=== PATIENT | female | born 1995 | race Caucasian/White ===

== ENCOUNTER 2018-06-28 19:37 | Outpatient (REF) | payer BC, SELFPAY ==
--- NOTE | 2018-06-28 10:30 | PAPFT_PTH ---
PATIENT: Lita Alexander LOC: [facility] U#:[id number] AGE/SX: 23/F ROOM: RE06/28/[address]: Chito Christy : 1995 BED: DIS: 06/28/2018 SPEC #: [id number] RECD: 06/29/18 12:45 STATUS: ANKUSH REQ #: [id number] HANS: 06/28/18 10:[address]: Chito Christy DEPT: [facility] Cytology RECD BY: Amy Palmer Tissues: 1 - CX/ENDOCX FOR PAP SMEARS Procedures: PAP THIN PREP/UVM Screening Comments: [id number]
[2018-06-30 14:42] LABS: Chlamydia Result Negative; GC Result Negative; Specimen Description CERVIX
== END 2018-06-28 19:57 ==
LOC: NCHCN 19:37
PROVIDERS: PCP Nurse Practitioner Family; Visit Provider Nurse Practitioner Family
DX: N89.8 Other specified noninflammatory disorders of vagina (principal); Z11.3 Encounter for screening for infections with a predominantly sexual mode of transmission; Z12.4 Encounter for screening for malignant neoplasm of cervix; Z00.00 Encounter for general adult medical examination without abnormal findings
CPT/HCPCS: 87491; 87591; 88142; 87480; 87510; 87660

== ENCOUNTER 2018-11-03 15:00 | Outpatient (REF) | payer BC, SELFPAY | END 2018-11-03 15:20 | LOC: NCHCN 15:00 | PROVIDERS: PCP Nurse Practitioner Family; Visit Provider Family Medicine | DX: L02.32 Furuncle of buttock (principal) | CPT/HCPCS: 87077; 87070; 87186; 87205 ==

== ENCOUNTER 2019-07-03 15:31 | Outpatient (REF) | payer OTHER, SELFPAY ==
[2019-07-04 13:32] LABS: COVID-19 RT-PCR UVMMC Result Negative (Negative)
== END 2019-07-03 15:51 ==
LOC: NCHCN 15:31
PROVIDERS: PCP Nurse Practitioner Family; Visit Provider Nurse Practitioner Family
DX: Z11.59 Encounter for screening for other viral diseases (principal)
CPT/HCPCS: U0003

== ENCOUNTER 2019-11-23 15:11 | Outpatient (REF) | payer OTHER, SELFPAY ==
[2019-11-27 01:10] LABS: Patient Race White; SARS-CoV-2 RNA Undetected (Undetected); SARS-CoV-2 Specimen Source Nasal
== END 2019-11-23 15:31 ==
LOC: NCHCN 15:11
PROVIDERS: PCP Nurse Practitioner Family; Visit Provider Nurse Practitioner Family
DX: J02.9 Acute pharyngitis, unspecified (principal)
CPT/HCPCS: U0003

== ENCOUNTER 2020-01-14 14:24 | Emergency (ER) | payer BC, SELFPAY ==
[2020-01-14 14:40] VITALS: BP 113/67; PULSE 85; RESP 16; TEMP 36.7; O2SAT 97
--- NOTE | 2020-01-14 15:34 | W.ED.GENAD ---
Discharge Plan Disposition Patient Disposition: HOME Condition: Stable Discharge Details Clinical Impression: Back pain Primary Care Provider: Chito Christy ED Provider: Andres Maurice Home Meds and New Rx's Prescriptions: New naproxen [Naprosyn] 500 mg tablet 500 mg PO BID PRNQty: 20 RF: 0 Continued albuterol sulfate [ProAir HFA] 8.5 GM HFA aerosol inhaler 2 puff Inhalation Q6H PRN RF: 0 sertraline [Zoloft] 50 MG tablet 50 mg PO DAILY RF: 0 Flovent HFA 12 GM HFA aerosol inhaler 110 mcg Inhalation BID RF: 0 cetirizine 10 MG tablet,chewable 10 mg PO HS RF: 0 SPACER RF: 0 trazodone 50 mg tablet 100 mg PO HS Qty: 60 RF: 0 lamotrigine 100 mg Tablet 100 mg PO BID RF: 0 Discharge Instructions Instructions: Back Pain (ED) Additional Instructions: Naprosyn as directed. Gentle stretching as tolerated. Warm and/or cool compresses every 2 hours for 20 minutes. Please watch for new or worsening symptoms and return to the ER for any concerns. Please reach out to your primary care provider later today or tomorrow for prompt outpatient reevaluation and to discuss physical therapy if you are not feeling better with more conservative therapy. Stand Alone Forms: Work Release Discharge Data Discharge Date/Time-TO BE ENTERED AT DEPARTURE: 01/14/20 15:55 Medical Decision Making 24-year-old female presents having slept awkwardly now complaining of right upper back and neck pain worse with movement. She took [id number] medication with some pain relief. Denies numbness, tingling, weakness although the pain does occasionally shoot down the right arm. She appears well, nontoxic. Denies fever, midline neck discomfort, chest pain, shortness of breath, chest pain. Clinically this certainly does appear to be musculoskeletal. Given there is no obvious trauma, no bony point tenderness, I see no clear indication for emergent x-ray imaging. Will treat with Naprosyn, gentle stretching, cool and/or warm compresses, and provide a light duty work note for the next 4 days. We discussed the importance of following up with with her primary care provider and potentially outpatient physical therapy symptoms persist. Return precautions given. Patient has no additional questions or concerns upon discharge Medical Records Medical records reviewed: Yes I reviewed the patient's medical records. HPI General Mode of arrival: ambulatory. Date/Time Provider Initiated Documentation: 01/14/20 14:48. Limitations to Documentation: no limitations. Information obtained by: patient. HPI Narrative: This is a 24-year-old female who reports past medical history including asthma. Patient states that she woke up yesterday with a stiff neck and right upper back pain. She states that the pain does radiate down her right arm. She is right-hand dominant. She denies any obvious injury or trauma but does do repetitive motion at work. Her primary concern today is a work note for the next 4 days that will allow her to perform only light duty. She denies headache, posterior neck pain, visual changes, chest pain, shortness of breath, cough, fever, numbness, tingling, weakness, abdominal pain, nausea, vomiting. Patient states that she did take [id number] medications with some relief. She states that she had a similar episode after a work injury a year or so ago, this was on the left side, and she subsequently needed physical therapy before it resolved completely. She states that the pain is mild at rest but more moderate with movement of her right shoulder above 90 degrees or with rotation of her neck. Related Data Home Medications Medication Instructions Recorded Confirmed Flovent HFA 110 mcg INHALATION BID inhaler 11/13/13 01/14/20 Spacer 11/13/13 09/03/14 albuterol sulfate [ProAir HFA] 2 puff INHALATION Q6H PRN inhaler 11/13/13 01/14/20 cetirizine 10 mg PO HS tab-cap 11/13/13 01/14/20 sertraline [Zoloft] 50 mg PO DAILY tab-cap 11/13/13 01/14/20 trazodone 50 mg tablet 100 mg PO HS #60 tab-cap 04/21/19 01/14/20 lamotrigine 100 mg PO BID 01/14/20 01/14/20 naproxen [Naprosyn] 500 mg PO BID PRN #20 tab 01/14/20 Previous Rx's Medication Instructions Recorded trazodone 50 mg tablet 100 mg PO HS #60 tab-cap 04/21/19 naproxen [Naprosyn] 500 mg PO BID PRN #20 tab 01/14/20 Allergies Allergy/AdvReac Type Severity Reaction Status Date / Time DOGS,CATS, ENVIROMENTAL Allergy Unknown Uncoded 01/14/20 14:46 General Stated Complaint: Nk/Back Pain LUIZA: 4 Review of Systems Constitutional Constitutional: Denies fever(s) and Denies weakness ENT Ears, Nose, Mouth, and Throat: Reports neck pain Cardiovascular Cardiovascular: Denies chest pain and Denies dyspnea Respiratory Respiratory: Denies dyspnea Gastrointestinal Gastrointestinal: Denies abdominal pain, Denies nausea and Denies vomiting Musculoskeletal Musculoskeletal: Reports back pain, Denies arthralgias, Denies muscle weakness, Reports neck pain, Denies numbness, Reports stiffness and Denies tingling Integumentary/Breasts Skin/Breast: Denies rash Neurologic Neurologic: Denies numbness, Denies tingling and Denies weakness [facility] Medical History Contraceptive management Implanon removed after 2yrs. Pt will use condoms. Hx of chlamydia infection Rx 06/2014 Surgical History Open Carpal Tunnel release 07/03/14 [facility]. Social History Smoking/Tobacco Use Status: Current every day Smoking risk assessment performed?: Yes Alcohol Intake: current Alcohol Intake frequency: holidays/special occasions only Drug use: Occasionally Substance use type: marijuana Do you feel safe at home: Yes Do you feel safe in your relationship?: Yes Exam Const General: cooperative, healthy appearing, comfortable and no acute distress Orientation: alert and awake [facility] Head: normal to inspection, normocephalic and atraumatic Eyes General: appearance normal, both eyes and all related structures Conjunctivae: conjunctivae normal Sclera: sclerae normal Neck Neck: normal visual inspection, full ROM (Increased pain with movement to the ipsilateral side), no lymphadenopathy, no meningeal signs, trachea midline, supple and tender (Right paravertebral and trapezius tenderness) Resp Effort & Inspection: normal respiratory effort and able to speak in complete sentences Auscultation: clear to auscultation bilaterally Cardio Rate: regular rate Rhythm: regular rhythm Back/Spine/Pelvis Back: no CVA tenderness and back tenderness (Diffuse mild thoracic paravertebral,extends toward the rhomboid. No spasm) Cervical Spine: normal cervical lordosis and cervical ROM normal Thoracic/Lumbar Spine: thoracic and lumbar spine normal to inspection and thoraco-lumbar ROM normal Skin General skin exam: no rashes or lesions noted Neuro General: patient alert, patient awake, moves all extremities and no focal motor deficits Gait: normal gait Motor: muscle tone normal throughout Sensory Exam: no sensory deficits noted Extrem General: normal to inspection, full ROM, no pedal edema and no calf tenderness Right upper extremity: normal to inspection and shoulder/upper arm Details: normal to inspection, axillary nerve sensory function normal and normal ROM; no tenderness and no swelling Other: Pain increases with movement of her right shoulder above the 90 degrees or any movement of her neck to the ipsilateral side. Psych Appearance: grossly normal Mental Status: mental status grossly normal Course Vital Signs Vital signs: Vital Signs Temperature 36.7 C 01/14/20 14:40 Pulse 85 01/14/20 14:40 Respiratory Rate 16 01/14/20 14:40 Blood Pressure 113/67 01/14/20 14:40 Pulse Oximetry 97 01/14/20 14:40 Temperature 36.7 C 01/14/20 14:40 Temperature Source Skin 01/14/20 14:40 Pulse 85 01/14/20 14:40 Respiratory Rate 16 01/14/20 14:40 Respiratory Effort 01/14/20 14:44 Blood Pressure 113/67 01/14/20 14:40 Blood Pressure Position Sitting 01/14/20 14:40 Pulse Oximetry 97 01/14/20 14:40 Oxygen Delivery Method Room Air 01/14/20 14:40 Oxygen Flow Rate 0 01/14/20 14:40 Pain Level 7 01/14/20 14:51
== END 2020-01-14 15:55 | disposition home or self-care (01) ==
PROVIDERS: Emergency Provider Physician Assistant; PCP Nurse Practitioner Family
DX: M54.6 Pain in thoracic spine (principal); M54.2 Cervicalgia; X50.9XXA Other and unspecified overexertion or strenuous movements or postures, initial encounter
CPT/HCPCS: 99282; 99283

== ENCOUNTER 2021-10-06 13:08 | Outpatient (REF) | payer MEDICAID, SELFPAY ==
[2021-10-08 11:37] LABS: COVID-19 RT-PCR UVMMC Result Negative (Negative)
== END 2021-10-06 13:09 | disposition home or self-care (01) ==
LOC: LBN 13:08
PROVIDERS: PCP Nurse Practitioner Family; Visit Provider Nurse Practitioner Family
DX: Z20.822 Contact with and (suspected) exposure to COVID-19 (principal)
CPT/HCPCS: U0003

== ENCOUNTER 2023-02-23 14:11 | Outpatient (REF) | payer MEDICAID, SELFPAY ==
--- NOTE | 2023-02-23 12:00 | PAPFT_PTH ---
PATIENT: Lita Alexander LOC: [facility] U#:[id number] AGE/SX: 27/F ROOM: RE02/23/[address]: MILAGROS CASTELLANOS : 1995 BED: DIS: 02/23/2023 SPEC #: [id number] RECD: 02/24/23 12:58 STATUS: ANKUSH REQ #: [id number] HANS: 02/23/23 12:[address]: Milagros Castellanos DEPT: [facility] Cytology RECD BY: Amy Palmer ENTERED: 02/24/23 12:58 SP TYPE: PAPFT OT DR: Unknown,Unknown Tissues: 1 - CX/ENDOCX FOR PAP SMEARS Procedures: PAP THIN PREP/UVM Screening HPV DNA PROBE Comments: [id number]
== END 2023-02-23 14:12 | disposition home or self-care (01) ==
LOC: NCHCN 14:11
PROVIDERS: Visit Provider Nurse Practitioner Family
DX: Z00.00 Encounter for general adult medical examination without abnormal findings (principal); Z12.4 Encounter for screening for malignant neoplasm of cervix; Z11.51 Encounter for screening for human papillomavirus (HPV)
CPT/HCPCS: 88142; 87624

== ENCOUNTER 2024-07-04 12:32 | Outpatient (REF) | payer BC, SELFPAY ==
[2024-07-04 21:18] LABS: TSH (W/Ref FT4) 6.24 uIU/mL (0.36-3.74)
[2024-07-04 21:35] LABS: FREE T4 0.85 ng/dL (0.76-1.46)
[2024-07-06 09:47] LABS: HIV-1/2 Ag & Ab Screen Negative (Negative)
[2024-07-06 10:19] LABS: Hepatitis C Ab w Rflx HCV PCR Negative (Negative)
== END 2024-07-04 12:33 | disposition home or self-care (01) ==
LOC: NCHCN 12:32
PROVIDERS: Visit Provider Family Medicine
DX: R63.5 Abnormal weight gain (principal); Z11.4 Encounter for screening for human immunodeficiency virus [HIV]
CPT/HCPCS: 86803; 87389; 84439; 84443

== ENCOUNTER 2024-12-03 11:42 | Outpatient (REF) | payer SELFPAY ==
[2024-12-03 15:41] LABS: HCT 41.5 % (36.0-46.0); HGB 13.8 g/dL (11.2-15.7); MCH 32.2 pg (27.0-33.0); MCHC 33.3 % (32.0-36.0); MCV 97 fL (80-95); MPV 8.8 fL (8.0-11.0); Platelet Count 409 10^3/uL (130-400); RBC 4.29 10^6/uL (3.93-5.22); RDW 12.5 % (11.7-14.6); RDW-SD 44.3 fL; WBC 7.04 10^3/uL (4.4-10.8)
[2024-12-03 16:06] LABS: ALT 25 U/L (14-59); AST 17 U/L (15-37); Albumin 4.2 g/dL (3.4-5.0); Alkaline Phosphatase 104 U/L (46-116); Anion Gap 10.7 mmol/L (3-11); BUN 7 mg/dL (7-18); Bilirubin, Total 0.2 mg/dL (0.2-1.0); CO2 27.3 mmol/L (21.0-32.0); Calcium 9.7 mg/dL (8.5-10.1); Chloride 104 mmol/L (98-107); Estimated GFR 119.24 (mL/min/1.73m2); Glucose 78 mg/dL (74-106); Potassium 4.5 mmol/L (3.5-5.1); Sodium 142 mmol/L (136-145); TSH (W/Ref FT4) 4.05 uIU/mL (0.36-3.74); Total Protein 7.7 g/dL (6.4-8.2)
== END 2024-12-03 11:43 | disposition home or self-care (01) ==
LOC: NCHCN 11:42
PROVIDERS: Visit Provider Family Medicine
DX: Z51.81 Encounter for therapeutic drug level monitoring (principal); E03.8 Other specified hypothyroidism
CPT/HCPCS: 80053; 80175; 85027; 84439; 84443; 86376; 86800

== ENCOUNTER 2025-01-15 12:24 | Emergency (ER) | payer SELFPAY ==
[2025-01-15 12:33] VITALS: BP 125/82; PULSE 71; RESP 14; TEMP 36.3; O2SAT 97
--- NOTE | 2025-01-15 13:45 | DI.CT_ITS ---
Exam(s) CT HEAD WO EXAM: CT HEAD WO CLINICAL HISTORY: Dizziness. TECHNIQUE: Imaging Protocol: Axial computed tomography images with coronal and sagittal reformatted images were created and reviewed COMPARISON: No exams were available for comparison FINDINGS: Ventricles and Extra axial spaces: Normal in size and morphology for the patient's age. Hemorrhage: None. Cerebral parenchyma: No evidence of acute infarct or mass. Midline shift: None. Brainstem/Cerebellum: Normal. Bones: No skull or facial fractures. Visualized Paranasal sinuses:Clear. Mastoids: Clear. Soft Tissues: Unremarkable. ORBITS: Unremarkable. PITUITARY: Not enlarged. IMPRESSION: No acute intracranial process. RADIATION DOSE DELIVERED: Total DLP DATA REPOSITORY: All CT scans at this facility are submitted to the National Radiology Data Registry (NRDR) Dose Index Registry (DIR) with the [employer] (ACR). RADIATION OPTIMIZATION: All CT scans at this facility use at least one of these dose optimization techniques: automated exposure control; mA and/or kV adjustment per patient size (includes targeted exams where dose is matched to clinical indication); or iterative reconstruction.
--- NOTE | 2025-01-15 13:50 | W.ED.GENAD ---
Discharge Plan Disposition Patient Disposition: Home Condition: Stable Discharge Details Clinical Impression: Dizziness Primary Care Provider: Unknown,Unknown ED Provider: Kaleigh Pierre Home Meds and New Rx's Prescriptions: New meclizine 12.5 mg tablet 12.5 mg PO TID PRN (Reason: dizziness) Qty: 10 0RF Rx Instructions: Take 1 tablet by mouth up to 3 times daily as needed for dizziness No Action albuterol sulfate [ProAir HFA] 8.5 GM HFA aerosol inhaler 2 puff Inhalation Q6H PRN sertraline [Zoloft] 50 MG tablet 50 mg PO DAILY fluticasone propionate [Flovent HFA] 12 GM HFA aerosol inhaler 110 mcg Inhalation BID cetirizine 10 MG tablet,chewable 10 mg PO HS SPACER trazodone 50 mg tablet 100 mg PO HS Qty: 60 0RF Rx Instructions: One month supply due to pharmacy changes .. lamotrigine 100 mg Tablet 100 mg PO BID naproxen [Naprosyn] 500 mg tablet 500 mg PO BID PRNQty: 20 0RF Discharge Instructions Instructions: Dizziness, Adult ED, Vertigo ED Additional Instructions: Please take the dizziness medications (meclizine) which you can also get over the counter as directed up to 3 times daily, this may make you sleepy. Increase oral fluids. Follow up with primary care provider in 3-5 days. Return to ED sooner if any worsening or concerns. No evidence of abnormality on the head CT. Stand Alone Forms: Portal Information Referrals: Primary Care Provider [Outside] - 5 days Discharge Data Discharge Date/Time-TO BE ENTERED AT DEPARTURE: 01/15/25 16:33 HPI General Mode of arrival: ambulatory. Date/Time Provider Initiated Documentation: 01/15/25 12:53. Limitations to Documentation: no limitations. Information obtained by: patient, RN notes reviewed and old records reviewed. HPI Narrative: 29-year-old patient presents to the ER with a chief complaint of dizziness since 10 AM this morning. 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 Denies any double vision or visual disturbances. She does report that she feels like she is spinning. Denies any recent head injuries, no headache no neck pain. Unsure of status. Denies any ear pain or throat pain. No gross motor neurodeficits noted on initial exam. Related Data Home Medications ?Medication ?Instructions ?Recorded ?Confirmed Spacer 11/13/13 09/03/14 albuterol sulfate 90 mcg/actuation 2 puff inhalation Q6H PRN 11/13/13 01/15/25 aerosol inhaler (ProAir HFA) cetirizine 10 mg chewable tablet 10 mg PO HS 11/13/13 01/15/25 fluticasone propionate 110 110 mcg inhalation BID 11/13/13 01/15/25 mcg/actuation HFA aerosol inhaler (Flovent HFA) sertraline 50 mg tablet (Zoloft) 50 mg PO DAILY 11/13/13 01/15/25 trazodone 50 mg tablet 100 mg (2 x 50 mg) PO HS #60 04/21/19 01/15/25 tab-caps lamotrigine 100 mg tablet 100 mg PO BID 01/14/20 01/15/25 naproxen 500 mg tablet (Naprosyn) 500 mg PO BID PRN #20 tabs 01/14/20 01/15/25 meclizine 12.5 mg tablet 12.5 mg PO TID PRN dizziness #10 01/15/25 tabs Previous Rx's ?Medication ?Instructions ?Recorded trazodone 50 mg tablet 100 mg (2 x 50 mg) PO HS #60 04/21/19 tab-caps naproxen 500 mg tablet (Naprosyn) 500 mg PO BID PRN #20 tabs 01/14/20 meclizine 12.5 mg tablet 12.5 mg PO TID PRN dizziness #10 01/15/25 tabs Allergies Allergy/AdvReac Type Severity Reaction Status Date / Time DOGS,CATS, ENVIROMENTAL Allergy Unknown stuffy Uncoded 01/15/25 12:38 General Stated Complaint: Dizzy/Sync LUIZA: 3 Review of Systems All systems reviewed & are unremarkable except as noted in HPI and below ENT Ears, Nose, Mouth, and Throat: Reports dizziness Gastrointestinal Gastrointestinal: Denies diarrhea, Denies nausea and Denies vomiting Neurologic Neurologic: Reports as per HPI and Reports dizziness Exam Narrative Exam Narrative: Constitutional: Alert and oriented x3. Appears stated age. Normal body habitus. Head: Normocephalic, no trauma. Eyes: Pupils PERRL, Red reflex noted, EOM's intact. Eyelids symmetrical without lesions, discharge, or swelling. ENT: Bilateral TM's WNL, External ear normal to inspection, no mastoid TTP, swelling, or erythema, Nasal turbinates WNL, no nasal discharge. Normal dentition, Posterior pharynx WNL, no exudate. Chest: RRR, Normal S1, S2, distal pulses intact. Resp: Lungs clear to auscultation bilaterally, no wheezes, rales, or rhonchi. Abdomen: Soft, non-distended, Normoactive bowel sounds all 4 quads. Musculoskeletal: Moves all 4 extremities without difficulty. Skin: No suspicious rashes or lesions. Capillary refill less than 2 sec. Neurologic: Cranial nerves II-XII intact. Alert and oriented x 3. Motor: No deficits noted. Sensory: Intact bilaterally all 4 extremities. Small amount of nystagmus. Hematologic/Lymphatic: No ecchymosis, no lymphadenopathy. Course Vital Signs Vital signs: Vital Signs Temperature 36.3 C L 01/15/25 12:33 Pulse 71 01/15/25 12:33 Respiratory Rate 14 01/15/25 12:33 Blood Pressure 125/82 01/15/25 12:33 Pulse Oximetry 97 01/15/25 12:33 Temperature 36.3 C L 01/15/25 12:33 Temperature Source Oral 01/15/25 12:33 Pulse 71 01/15/25 12:33 Respiratory Rate 14 01/15/25 12:33 Blood Pressure 125/82 01/15/25 12:33 Pulse Oximetry 97 01/15/25 12:33 Medical Decision Making 29-year-old patient presents to the ER with a chief complaint of dizziness since 10 AM this morning. 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 Denies any double vision or visual disturbances. She does report that she feels like she is spinning. Denies any recent head injuries, no headache no neck pain. Unsure of status. Denies any ear pain or throat pain. No gross motor neurodeficits noted on initial exam. CT head ordered, urine and urinalysis and 45 mg of meclizine p.o. 1535: On patient re-eval she states she is still feeling dizzy. Awaiting CT. CT WNL, will discharge with meclizine Rx or have patient get this OTC. Increase oral fluids, follow up with PCP. No evidence of menningitis, no headache, no gross motor deficits, likely vertigo. This text was generated using [employer] dictation system, please disregard any oddities of phrase or misspellings. PFSH All Active Problems (Updated 01/15/25 @ 15:42 by Kaleigh Pierre NP) Dizziness (Acute) Medical History Hx of chlamydia infection Rx 06/2014 Contraceptive management Implanon removed after 2yrs. Pt will use condoms. Surgical History Open Carpal Tunnel release 07/03/14 [facility]. [facility]. Social History Smoking/Tobacco Use Status: Current every day Tobacco Type: e-cigarettes Smoking risk assessment performed?: Yes Alcohol Intake: current Alcohol Intake frequency: holidays/special occasions only Alcohol type: beer Drug use: Occasionally Substance use type: marijuana Do you feel safe at home: Yes Do you feel safe in your relationship?: Yes PAWSS Have you Been Recently Intoxicated or Drunk Within the Last 30 days?: No Have you Ever Experienced Previous Episodes of Alcohol Withdrawal?: No Have you ever Experienced Withdrawal Seizures?: No Have you ever Experienced Delirium Tremens(DT)s?: No Have you ever undergone Alcohol Rehabilitation Treatment (i.e, inpt ot outpatient treatment programs)?: No Have you ever Experienced Blackouts?: No Have you ever Combined Alcohol with other Downers within the last 90 days?: No Have you ever Combined Alcohol with any other Substance of Abuse during the last 90 days?: No Positive Blood Alcohol level on Presentation? [PCS.BAL]: No Evidence of Increased Autonomic Activity (i.e. HR>120, tremor, sweating, agitation, nausea)?: No Result: 0
[2025-01-15] MEDS: Meclizine 25 MG TAB PO (14:18)
[2025-01-15 16:39] VITALS: BP 118/78; PULSE 78; RESP 16; O2SAT 97
== END 2025-01-15 16:33 | disposition home or self-care (01) ==
PROVIDERS: Emergency Provider Registered Nurse Emergency
DX: R42 Dizziness and giddiness (principal)
CPT/HCPCS: 99283; 99284; 81025; 70450

== ENCOUNTER 2025-02-18 17:47 | Outpatient (CLI) | payer SELFPAY ==
[2025-02-20 12:32] LABS: TB Interpretation Negative (Negative); TB1 Ag minus Nil 0.00 IU/mL; TB2 Ag minus Nil 0.00 IU/mL
== END 2025-02-18 17:48 | disposition home or self-care (01) ==
LOC: LBO 17:49
PROVIDERS: Visit Provider Family Medicine
DX: Z11.1 Encounter for screening for respiratory tuberculosis (principal)
CPT/HCPCS: 36415; 86480

== ENCOUNTER 2025-02-20 13:06 | Outpatient (CLI) | payer SELFPAY | END 2025-02-20 13:07 | disposition home or self-care (01) | LOC: LBO 13:08 | PROVIDERS: Visit Provider Family Medicine | DX: Z11.59 Encounter for screening for other viral diseases (principal); R76.0 Raised antibody titer | CPT/HCPCS: 36415; 86787; 86765 ==